=== PATIENT | female | born 1995 | race Hispanic/Latino ===

== ENCOUNTER 2017-05-25 21:17 | Emergency (ER) | payer BC, SELFPAY ==
[2017-05-25 22:11] LABS: Urine Blood TRACE (NEG); Urine Glucose NEGATIVE (NEG); Urine Protein NEGATIVE (NEG); Urine Specific Gravity >1.030 (1.005-1.030); Urine pH 5.5 (5.0-7.0)
[2017-05-25 22:42] LABS: Absolute Lymphocytes (CBC) 1.8 K/uL (0.7-4.9); Absolute Monocytes 0.4 K/uL (0.1-1.3); Absolute Neutrophil 6.1 K/uL (1.8-8.0); Basophils % 0.4 % (0-1.3); Eosinophils % 1.2 % (0-4.4); Hematocrit 40.9 % (36.0-45.0); MCH 30.2 pg (27.0-35.0); MCV 89.6 fL (80-100); MPV 9.3 fL (7.6-11.3); Monocytes % 5.1 % (3.3-12.3); RBC Red Blood Cell Count 4.57 M/uL (3.86-4.86)
[2017-05-25] MEDS ORDERED: ONDANSETRON 4 MG/2 ML VIAL ONE (22:57)
[2017-05-25] MEDS ORDERED: NA CHLORIDE 0.9% 1,000 ML ONE (22:57)
[2017-05-25 22:59] LABS: Bicarbonate 25 mEq/L (21-31); Glucose Level 89 mg/dL (65-120); Lipase 14 U/L (22-51); Potassium 3.6 mEq/L (3.6-5.0); Sodium Level 136 mEq/L (135-145)
[2017-05-25 23:00] LABS: Glomerular Filtration Rate > 60 mL/min (>60)
[2017-05-25 23:06] LABS: ALT/SGPT 16 IU/L (10-60); AST/SGOT 16 IU/L (10-42); Albumin 4.1 g/dL (3.2-5.5); Alkaline Phosphatase 97 IU/L (42-121); Amylase Level 66 U/L (28-100); BUN Blood Urea Nitrogen 11 mg/dL (6-20); Bilirubin Direct 0.1 mg/dL (0-0.2); Bilirubin Total 0.9 mg/dL (0.3-1.2); Glomerular Filtration Rate > 90 mL/min (=/>90); Protein, Total 7.3 g/dL (6.0-8.3)
[2017-05-25 23:53] LABS: Urine Bacteria 20-50 /HPF (<20); Urine RBC <5 /HPF (NONE SEEN)
[2017-05-25 23:54] LABS: Urine Culture Reflex Order NOT NEEDED; Urine Mucus 4+ /HPF (NONE SEEN)
--- NOTE | 2017-05-25 23:58 | ER ---
Nurse's Notes [facility] Name: Yamilet Ho Age: 22 yrs Sex: Female : 1995 Arrival Date: 05/25/2017 Time: 21:18 Bed 25 Private MD: Diagnosis: Vomiting;Diarrhea, unspecified;Fever, unspecified Presentation: 05/25 21:20 Presenting complaint: Patient states: I have had diarrhea and vomiting all day and a tl1 fever. I started having abdominal pain last night that feels like a cramping pain. Transition of care: patient was not received from another setting of care. Onset of symptoms was May 25, 2017. Care prior to arrival: None. 21:20 Acuity: JUAN 3 tl1 21:20 Method Of Arrival: Ambulatory tl1 Triage Assessment: 22:47 General: Appears in no apparent distress. comfortable, well groomed, well developed, kr2 well nourished. GI: Reports lower abdominal pain, upper abdominal pain. 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 - Social history:: Smoking status: Patient/guardian denies using tobacco, never smoked. - Family history:: not pertinent. Screenin:47 Abuse screen: Denies threats or abuse. Denies injuries from another. Nutritional kr2 screening: No deficits noted. Tuberculosis screening: No symptoms or risk factors identified. Fall Risk None identified. Assessment: 22:30 General: Appears in no apparent distress. comfortable, well groomed, well developed, kr2 well nourished, Behavior is calm, cooperative, appropriate for age. Pain: Complains of pain in chest and abdomen Pain does not radiate. Pain currently is 8 out of 10 on a pain scale. Quality of pain is described as crampy, pressure, sharp, squeezing, Is continuous. Neuro: Level of Consciousness is awake, alert, obeys commands, Oriented to person, place, time, situation, Appropriate for age. Cardiovascular: Capillary refill < 3 seconds in bilateral fingers Patient's skin is warm and dry. Respiratory: Airway is patent Respiratory effort is even, unlabored, Respiratory pattern is regular, symmetrical. GI: Abdomen is flat, non-distended, Bowel sounds present X 4 quads. hyperactive in right lower quadrant and left lower quadrant. : Urine is clear. EENT: Oral mucosa is moist. Derm: Skin is intact, is healthy with good turgor, Skin is pink, warm \T\ dry. Musculoskeletal: Circulation, motion, and sensation intact. Range of motion: intact in all extremities. 23:30 Reassessment: Patient appears in no apparent distress at this time. Patient and/or kr2 family updated on plan of care and expected duration. Pain level reassessed. Patient is alert, oriented x 3, equal unlabored respirations, skin warm/dry/pink. 05/26 00:38 Reassessment: Patient appears in no apparent distress at this time. Patient and/or kr2 family updated on plan of care and expected duration. Pain level reassessed. Patient is alert, oriented x 3, equal unlabored respirations, skin warm/dry/pink. 00:52 Reassessment: Patient appears in no apparent distress at this time. Patient and/or kr2 family updated on plan of care and expected duration. Pain level reassessed. Patient is alert, oriented x 3, equal unlabored respirations, skin warm/dry/pink. Patient has Cipro infusing at this time, to be discharged upon completion. Pain has decreased since receiving Morphine as ordered. 01:15 Reassessment: Patient appears in no apparent distress at this time. Patient is alert, lp1 oriented x 3, equal unlabored respirations, skin warm/dry/pink. Aware of pending discharge on completion of IV antibiotic Patient states feeling better. Vital Signs: 05/25 21:24 BP 112 / 83; Pulse 77; Resp 16; Temp 98.4; Pulse Ox 99% on R/A; Weight 74.84 kg; Height tl1 5 ft. 3 in. (160.02 cm); Pain 8/10; 22:48 BP 105 / 83; Pulse 89; Resp 16; Pulse Ox 99% on R/A; kr2 05/26 00:38 BP 136 / 84; Pulse 106; Resp 16; Pulse Ox 99% on R/A; kr2 01:27 BP 113 / 75; Pulse 99; Resp 16; Pulse Ox 99% on R/A; Pain 3/10; lp1 05/25 21:24 Body Mass Index 29.23 (74.84 kg, 160.02 cm) tl1 ED Course: 05/25 21:18 Patient arrived in ED. es 21:22 Triage completed. tl1 21:24 Arm band placed on right wrist. tl1 22:07 Evert Estes MD is Attending Physician. [facility] 22:23 Lana Hua, RN is Primary Nurse. kr2 22:30 Inserted saline lock: 20 gauge in left antecubital area, using aseptic technique. Blood kr2 collected. 22:47 Patient has correct armband on for positive identification. Bed in low position. Call kr2 light in reach. Side rails up X 1. Adult w/ patient. Pulse ox on. NIBP on. Door closed. Warm blanket given. Head of bed elevated. 05/26 01:00 Report received from Lana Hua RN. lp1 01:20 No provider procedures requiring assistance completed. lp1 01:27 IV discontinued, No redness/swelling at site. Pressure dressing applied. lp1 Administered Medications: 05/25 22:44 Drug: NS 0.9% 1000 ml Route: IV; Rate: 1 bolus; Site: left antecubital; kr2 05/26 00:39 Follow up: Response: No adverse reaction; IV Status: Completed infusion kr2 05/25 22:44 Drug: Zofran 4 mg Route: IVP; Site: left antecubital; kr2 23:00 Follow up: Response: No adverse reaction; Nausea is decreased kr2 05/26 00:22 Drug: Cipro 400 mg Volume: 200 ml; Route: IVPB; Infused Over: 60 mins; Site: left kr2 antecubital; 01:30 Follow up: IV Status: Completed infusion lp1 00:25 Drug: morphine 4 mg Route: IVP; Site: left antecubital; kr2 00:54 Follow up: Response: No adverse reaction; Pain is decreased kr2 00:25 Drug: Zofran 4 mg Route: IVP; Site: left antecubital; kr2 00:54 Follow up: Response: No adverse reaction; Nausea is decreased kr2 Outcome: 05/25 23:57 Discharge ordered by . lamberto 05/26 01:31 Discharged to home ambulatory, with family. lp1 Condition: good Discharge instructions given to patient, Instructed on discharge instructions, follow up and referral plans. medication usage, Demonstrated understanding of instructions, follow-up care, medications, Prescriptions given X 3. 01:33 Patient left the ED. lp1 Signatures: Evert Estes MD MD cha Salyer, Edna es Pena, Laura RN RN lp1 Kacey Avery RN RN tl1 Lana Hua RN RN kr2 Corrections: (The following items were deleted from the chart) 00:54 00:53 Response: No adverse reaction kr2 kr2
--- NOTE | 2017-05-25 23:58 | EDPHYS ---
Physician Documentation [facility] Name: Yamilet Ho Age: 22 yrs Sex: Female : 1995 Arrival Date: 05/25/2017 Time: 21:18 Bed 25 Private MD: ED Physician Evert Estes HPI: 05/25 23:54 This 22 yrs old Female presents to ER via Ambulatory with complaints of lamberto Vomiting/Diarrhea. 23:54 The patient presents to the emergency department with nausea, vomiting, diarrhea, lamberto abdominal pain, of the right upper quadrant, left upper quadrant, right lower quadrant and left lower quadrant. Onset: The symptoms/episode began/occurred 1 day(s) ago. Possible causes: unknown. The symptoms are aggravated by nothing. The symptoms are alleviated by nothing. Associated signs and symptoms: Pertinent positives: abdominal pain, diarrhea, fever, nausea, vomiting. Severity of symptoms: At their worst the symptoms were mild moderate in the emergency department the symptoms are unchanged. The patient has not experienced similar symptoms in the past. 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 - Social history:: Smoking status: Patient/guardian denies using tobacco, never smoked. - Family history:: not pertinent. ROS: 23:54 Constitutional: Negative for fever, chills, and weight loss, Eyes: Negative for injury, lamberto pain, redness, and discharge, ENT: Negative for injury, pain, and discharge, Neck: Negative for injury, pain, and swelling, Cardiovascular: Negative for chest pain, palpitations, and edema, Respiratory: Negative for shortness of breath, cough, wheezing, and pleuritic chest pain, Back: Negative for injury and pain, : Negative for injury, bleeding, discharge, and swelling, MS/Extremity: Negative for injury and deformity, Skin: Negative for injury, rash, and discoloration, Neuro: Negative for headache, weakness, numbness, tingling, and seizure, Psych: Negative for depression, anxiety, suicide ideation, homicidal ideation, and hallucinations, Allergy/Immunology: Negative for hives, rash, and allergies, Endocrine: Negative for neck swelling, polydipsia, polyuria, polyphagia, and marked weight changes, Hematologic/Lymphatic: Negative for swollen nodes, abnormal bleeding, and unusual bruising. 23:54 Abdomen/GI: Positive for abdominal pain, nausea, vomiting, diarrhea. Exam: 23:54 Constitutional: This is a well developed, well nourished patient who is awake, alert, lamberto and in no acute distress. Head/Face: Normocephalic, atraumatic. Eyes: Pupils equal round and reactive to light, extra-ocular motions intact. Lids and lashes normal. Conjunctiva and sclera are non-icteric and not injected. Cornea within normal limits. Periorbital areas with no swelling, redness, or edema. ENT: Nares patent. No nasal discharge, no septal abnormalities noted. Tympanic membranes are normal and external auditory canals are clear. Oropharynx with no redness, swelling, or masses, exudates, or evidence of obstruction, uvula midline. Mucous membranes moist. Neck: Trachea midline, no thyromegaly or masses palpated, and no cervical lymphadenopathy. Supple, full range of motion without nuchal rigidity, or vertebral point tenderness. No Meningismus. Chest/axilla: Normal chest wall appearance and motion. Nontender with no deformity. No lesions are appreciated. Cardiovascular: Regular rate and rhythm with a normal S1 and S2. No gallops, murmurs, or rubs. Normal PMI, no JVD. No pulse deficits. Respiratory: Lungs have equal breath sounds bilaterally, clear to auscultation and percussion. No rales, rhonchi or wheezes noted. No increased work of breathing, no retractions or nasal flaring. Abdomen/GI: Soft, non-tender, with normal bowel sounds. No distension or tympany. No guarding or rebound. No evidence of tenderness throughout. Back: No spinal tenderness. No costovertebral tenderness. Full range of motion. Skin: Warm, dry with normal turgor. Normal color with no rashes, no lesions, and no evidence of cellulitis. MS/ Extremity: Pulses equal, no cyanosis. Neurovascular intact. Full, normal range of motion. Neuro: Awake and alert, GCS 15, oriented to person, place, time, and situation. Cranial nerves II-XII grossly intact. Motor strength 5/5 in all extremities. Sensory grossly intact. Cerebellar exam normal. Normal gait. Psych: Awake, alert, with orientation to person, place and time. Behavior, mood, and affect are within normal limits. Vital Signs: 21:24 BP 112 / 83; Pulse 77; Resp 16; Temp 98.4; Pulse Ox 99% on R/A; Weight 74.84 kg; Height tl1 5 ft. 3 in. (160.02 cm); Pain 8/10; 22:48 BP 105 / 83; Pulse 89; Resp 16; Pulse Ox 99% on R/A; kr2 05/26 00:38 BP 136 / 84; Pulse 106; Resp 16; Pulse Ox 99% on R/A; kr2 01:27 BP 113 / 75; Pulse 99; Resp 16; Pulse Ox 99% on R/A; Pain 3/10; lp1 05/25 21:24 Body Mass Index 29.23 (74.84 kg, 160.02 cm) tl1 MDM: 05/25 22:07 Patient medically screened. [facility] 23:56 Data reviewed: vital signs, nurses notes, lab test result(s). [facility] 05/25 21:46 Order name: Urine Dipstick--Ancillary (enter results) [facility] 05/25 21:46 Order name: Urine --Ancillary (enter results) [facility] 05/25 22:08 Order name: Amylase, Serum [facility] 05/25 22:08 Order name: Basic Metabolic Panel [facility] 05/25 22:08 Order name: CBC with Diff [facility] 05/25 22:08 Order name: Creatinine for Radiology [facility] 05/25 22:08 Order name: Hepatic Function [facility] 05/25 22:08 Order name: Lipase [facility] 05/25 22:08 Order name: Urine Microscopic Only [facility] 05/25 22:08 Order name: Urine Culture [facility] 05/25 22:12 Order name: Urine --Ancillary; Complete Time: 23:52 EDMS 05/25 22:12 Order name: Urine Dipstick-Ancillary; Complete Time: 23:52 EDMS 05/25 22:51 Order name: CBC with Automated Diff; Complete Time: 23:52 EDKY 05/25 23:00 Order name: Basic Metabolic Panel; Complete Time: 23:52 EDMS 05/25 21:46 Order name: Urine Dipstick-Ancillary (obtain specimen); Complete Time: 21:46 em1 05/25 21:46 Order name: Urine Test (obtain specimen); Complete Time: 21:46 1 05/25 22:08 Order name: IV Saline Lock; Complete Time: 22:36 [facility] 05/25 22:08 Order name: Labs collected and sent; Complete Time: 22:36 [facility] 05/25 23:00 Order name: Lipase; Complete Time: 23:52 EDMS 05/25 23:01 Order name: Creatinine (Radiology Only); Complete Time: 23:52 EDMS 05/25 23:06 Order name: Liver (Hepatic) Function; Complete Time: 23:52 EDMS 05/25 23:06 Order name: Amylase Level; Complete Time: 23:52 EDMS 05/25 23:54 Order name: Urine Microscopic Only; Complete Time: 23:54 EDMS Administered Medications: 22:44 Drug: NS 0.9% 1000 ml Route: IV; Rate: 1 bolus; Site: left antecubital; kr2 05/26 00:39 Follow up: Response: No adverse reaction; IV Status: Completed infusion 2 05/25 22:44 Drug: Zofran 4 mg Route: IVP; Site: left antecubital; kr2 23:00 Follow up: Response: No adverse reaction; Nausea is decreased 2 05/26 00:22 Drug: Cipro 400 mg Volume: 200 ml; Route: IVPB; Infused Over: 60 mins; Site: left kr antecubital; 01:30 Follow up: IV Status: Completed infusion lp1 00:25 Drug: morphine 4 mg Route: IVP; Site: left antecubital; kr2 00:54 Follow up: Response: No adverse reaction; Pain is decreased kr2 00:25 Drug: Zofran 4 mg Route: IVP; Site: left antecubital; kr2 00:54 Follow up: Response: No adverse reaction; Nausea is decreased kr2 Disposition: 05/25/17 23:57 Discharged to Home. Impression: Vomiting, Diarrhea, unspecified, Fever, unspecified. - Condition is Stable. - Discharge Instructions: Food Choices to Help Relieve Diarrhea, Adult, Diarrhea, Nausea and Vomiting, Nausea and Vomiting, [id number], Diarrhea, [id number]. - Prescriptions for Bentyl 20 mg Oral Tablet - take 1 tablet by ORAL route every 6 hours As needed; 20 tablet. Zofran 4 mg Oral Tablet - take 1 tablet by ORAL route every 12 hours As needed; 20 tablet. Cipro 500 mg Oral Tablet - take 1 tablet by ORAL route every 12 hours for 5 days; 10 tablet. - Medication Reconciliation Form, Thank You Letter, Antibiotic Education, Prescription Opioid Use, Work release form form. - Follow up: Private Physician; When: 2 - 3 days; Reason: Recheck today's complaints, Continuance of care, Re-evaluation by your physician. - Problem is new. - Symptoms have improved. Signatures: Dispatcher [employer] EDMS Evert Estes MD MD cha Martinez, Eric em1 Arline Lama, RN RN lp1 Kacey Avery, RN RN tl1 Lana Hua RN RN kr2
[2017-05-26] MEDS ORDERED: CIPROFLOXACIN 400mg IV 400 MG/200 ML BAG IV ONE (00:31)
[2017-05-26] MEDS ORDERED: ONDANSETRON 4 MG/2 ML VIAL ONE (00:36)
[2017-05-26] MEDS ORDERED: MORPHINE 4 MG/ML SYR ONE (00:36)
[2017-05-26 01:38] VITALS: TEMP 98.4; O2SAT 99
[2017-05-26 01:41] VITALS: BP 113/75
== END 2017-05-26 01:33 | disposition home or self-care (01) ==
LOC: ER 21:17
DX: R19.7 Diarrhea, unspecified (principal); R50.9 Fever, unspecified; Z88.6 Allergy status to analgesic agent
CPT/HCPCS: 36415; 80048; 80076; 81003; 81015; 81025; 82150; 83690; 85025; 87086; 87088; 96361; 96365; 96375; 99284; J0744; J2405; J7030

== ENCOUNTER 2017-09-27 21:19 | Emergency (ER) | payer SELFPAY ==
[2017-09-27 22:52] LABS: Urine Blood NEGATIVE (NEG); Urine Glucose NEGATIVE (NEG); Urine Protein NEGATIVE (NEG); Urine Specific Gravity 1.015 (1.005-1.030); Urine pH 8.5 (5.0-7.0)
[2017-09-27 22:59] LABS: Urine Amorphous Sediment 4+ /HPF (NONE SEEN); Urine Bacteria <20 /HPF (<20); Urine Culture Reflex Order NOT NEEDED; Urine RBC NONE SEEN /HPF (NONE SEEN)
[2017-09-27 23:16] LABS: Absolute Monocytes 0.7 K/uL (0.1-1.3); Absolute Neutrophil 6.1 K/uL (1.8-8.0); Basophils % 0.3 % (0-1.3); Eosinophils % 0.7 % (0-4.4); MCH 30.9 pg (27.0-35.0); MCV 91.3 fL (80-100); MPV 9.6 fL (7.6-11.3); Monocytes % 6.9 % (3.3-12.3); RBC Red Blood Cell Count 4.71 M/uL (3.86-4.86)
[2017-09-27] MEDS ORDERED: FENTANYL CITR 100 MCG/2 ML ONE (23:28)
[2017-09-27 23:35] LABS: ALT/SGPT 32 U/L (12-78); AST/SGOT 26 U/L (15-37); Albumin 4.1 g/dL (3.4-5.0); Alkaline Phosphatase 99 U/L (45-117); BUN Blood Urea Nitrogen 14 mg/dL (7-18); Bicarbonate 29 mmol/L (21-32); Bilirubin Direct < 0.1 mg/dL (0-0.2); Bilirubin Total 0.3 mg/dL (0.2-1.0); Glucose Level 89 mg/dL (74-106); Lipase 101 U/L (73-393); Potassium 3.6 mmol/L (3.5-5.1); Protein, Total 8.2 g/dL (6.4-8.2); Sodium Level 140 mmol/L (136-145)
[2017-09-28] MEDS ORDERED: KETOROLAC 30 MG/ML INJ ONE (01:25)
--- NOTE | 2017-09-28 03:36 | ER ---
Nurse's Notes [facility] Name: Yamilet Ho Age: 22 yrs Sex: Female : 1995 Arrival Date: 09/27/2017 Time: 21:20 Bed 17 Private MD: Out, [facility] Diagnosis: Lower abdominal pain, unspecified Presentation: 09/27 21:31 Presenting complaint: Patient states: left lower abd pain X1 day. pt denies N/V/D. ak1 Transition of care: patient was not received from another setting of care. Onset of symptoms was September 26, 2017. Risk Assessment: Do you want to hurt yourself or someone else? Patient reports no desire to harm self or others. Initial Sepsis Screen: Does the patient meet any 2 criteria? No. Patient's initial sepsis screen is negative. Does the patient have a suspected source of infection? No. Patient's initial sepsis screen is negative. Care prior to arrival: None. 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 - Social history:: Smoking status: Patient/guardian denies using tobacco. - Ebola Screening: : No symptoms or risks identified at this time. Screenin:40 Abuse screen: Denies threats or abuse. Nutritional screening: No deficits noted. jd3 Tuberculosis screening: No symptoms or risk factors identified. Fall Risk Ambulatory Aid- None/Bed Rest/Nurse Assist (0 pts). Gait- Normal/Bed Rest/Wheelchair (0 pts) Mental Status- Oriented to own ability (0 pts). Total Tripathi Fall Scale indicates No Risk (0-24 pts). Assessment: 21:37 General: Appears in no apparent distress. uncomfortable, Behavior is calm, cooperative, jd3 appropriate for age. Pain: Complains of pain in left upper quadrant Quality of pain is described as sharp, tender, Is continuous, Also complains of nausea. Neuro: Level of Consciousness is awake, alert, obeys commands, Oriented to person, place, time, situation. Cardiovascular: Capillary refill < 3 seconds Patient's skin is warm and dry. Respiratory: Airway is patent Respiratory effort is even, unlabored, Respiratory pattern is regular, symmetrical. GI: Abdomen is round Bowel sounds present X 4 quads. Abd is soft X 4 quads Abdomen is tender to palpation in left upper quadrant. : No signs and/or symptoms were reported regarding the genitourinary system. EENT: No signs and/or symptoms were reported regarding the EENT system. Derm: Skin is intact, Skin is dry, Skin is normal, Skin temperature is warm. Musculoskeletal: Circulation, motion, and sensation intact. Range of motion: intact in all extremities. 23:26 Reassessment: Patient appears in no apparent distress at this time. Patient and/or jd3 family updated on plan of care and expected duration. Pain level reassessed. Patient is alert, oriented x 3, equal unlabored respirations, skin warm/dry/pink. 09/28 00:00 Reassessment: Patient appears in no apparent distress at this time. Patient and/or jd3 family updated on plan of care and expected duration. Pain level reassessed. Patient is alert, oriented x 3, equal unlabored respirations, skin warm/dry/pink. 00:58 Reassessment: Patient appears in no apparent distress at this time. Patient and/or jd3 family updated on plan of care and expected duration. Pain level reassessed. Patient is alert, oriented x 3, equal unlabored respirations, skin warm/dry/pink. 01:57 Reassessment: Patient appears in no apparent distress at this time. Patient and/or jd3 family updated on plan of care and expected duration. Pain level reassessed. Patient is alert, oriented x 3, equal unlabored respirations, skin warm/dry/pink. 02:55 Reassessment: Patient appears in no apparent distress at this time. Patient and/or jd3 family updated on plan of care and expected duration. Pain level reassessed. Patient is alert, oriented x 3, equal unlabored respirations, skin warm/dry/pink. 03:52 Reassessment: Patient appears in no apparent distress at this time. Patient and/or jd3 family updated on plan of care and expected duration. Pain level reassessed. Patient is alert, oriented x 3, equal unlabored respirations, skin warm/dry/pink. pt reported understanding of discharge instructions, even and steady gait upon discharge. Vital Signs: 09/27 21:32 BP 140 / 99; Pulse 89; Resp 18; Temp 98; Pulse Ox 99% on R/A; Weight 95.25 kg (R); ak1 Height 5 ft. 3 in. (160.02 cm) (R); Pain 8/10; 22:08 BP 112 / 78; Pulse 88; Resp 17 S; Pulse Ox 98% on R/A; jd3 23:26 BP 106 / 60; Pulse 78; Resp 16 S; Pulse Ox 98% on R/A; jd3 09/28 00:00 BP 99 / 66; Pulse 80; Resp 15 S; Pulse Ox 98% on R/A; jd3 00:58 BP 113 / 77; Pulse 79; Resp 16 S; Pulse Ox 98% on R/A; jd3 01:57 BP 111 / 71; Pulse 66; Resp 15 S; Pulse Ox 100% on R/A; jd3 02:55 BP 118 / 62; Pulse 71; Resp 15 S; Pulse Ox 98% on R/A; jd3 03:53 BP 108 / 64; Pulse 62; Resp 16 S; Pulse Ox 98% on R/A; jd3 09/27 21:32 Body Mass Index 37.20 (95.25 kg, 160.02 cm) ak1 ED Course: 09/27 21:20 Patient arrived in ED. es 21:20 Out, [facility] is Private Physician. es 21:31 Triage completed. ak1 21:32 Arm band placed on Patient placed in an exam room, on a stretcher, Patient notified of ak1 wait time. 21:39 Ky Aaron MD is Attending Physician. gs 21:39 Jermaine Sheriff, RAYNA is Primary Nurse. jd3 21:41 Patient has correct armband on for positive identification. Bed in low position. Call j light in reach. Side rails up X 1. 23:00 Initial lab(s) drawn, by me, sent to lab. Inserted saline lock: 20 gauge in left bb antecubital area, using aseptic technique. Blood collected. 09/28 00:[address] via stretcher. kw1 01:07 CT completed. Patient tolerated procedure well. Patient moved back from CT. kw1 01:13 CT Abd/Pelvis - W/Contrast In Process Unspecified. EDMS 03:51 No provider procedures requiring assistance completed. IV discontinued, intact, jd3 bleeding controlled. Administered Medications: 09/27 23:32 Drug: fentaNYL (PF) 50 mcg Route: IVP; Site: left antecubital; jd3 09/28 00:25 Follow up: Response: No adverse reaction jd3 01:26 Drug: TORadol 15 mg Route: IVP; Site: left antecubital; jd3 03:54 Follow up: Response: No adverse reaction jd3 Outcome: 03:35 Discharge ordered by MD. 03:52 Discharged to home ambulatory, with family. jd3 03:52 Condition: stable 03:52 Discharge instructions given to patient, Instructed on discharge instructions, follow up and referral plans. Demonstrated understanding of instructions, follow-up care. 03:54 Patient left the ED. jd3 Signatures: Dispatcher [employer] EDVenus Wright Brenda, RN RN Maisha Loyd RN RN ak1 Ky Aaron MD MD gs Davies, Jonathon, RN RN jElsa Brown kw1 Corrections: (The following items were deleted from the chart) 01:58 01:57 BP 155 / 60; Pulse 72bpm; Resp 17bpm; Spontaneous; Pulse Ox 98% RA; jd3 jd3
--- NOTE | 2017-09-28 03:36 | EDPHYS ---
Physician Documentation [facility] Name: Yamilet Ho Age: 22 yrs Sex: Female : 1995 Arrival Date: 09/27/2017 Time: 21:20 Bed 17 Private MD: Out, [facility] ED Physician Ky Aaron HPI: 09/27 23:32 This 22 yrs old Female presents to ER via Ambulatory with complaints of gs Abdominal Pain. 23:32 The patient presents with abdominal pain in the left lower quadrant. Onset: The gs symptoms/episode began/occurred yesterday. The symptoms do not radiate. Associated signs and symptoms: Pertinent negatives: nausea, vomiting, and diarrhea, dysuria, fever. The symptoms are described as crampy, sharp. Modifying factors: The symptoms are alleviated by nothing, the symptoms are aggravated by nothing. Severity of pain: At its worst the pain was moderate in the emergency department the pain is unchanged. The patient has experienced similar episodes in the past, a few times. 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 - Social history:: Smoking status: Patient/guardian denies using tobacco. - Ebola Screening: : No symptoms or risks identified at this time. ROS: 23:32 All other systems are negative. gs Exam: 23:32 Head/Face: Normocephalic, atraumatic. Eyes: Pupils equal round and reactive to light, gs extra-ocular motions intact. Lids and lashes normal. Conjunctiva and sclera are non-icteric and not injected. Cornea within normal limits. Periorbital areas with no swelling, redness, or edema. ENT: Nares patent. No nasal discharge, no septal abnormalities noted. Tympanic membranes are normal and external auditory canals are clear. Oropharynx with no redness, swelling, or masses, exudates, or evidence of obstruction, uvula midline. Mucous membranes moist. Neck: Trachea midline, no thyromegaly or masses palpated, and no cervical lymphadenopathy. Supple, full range of motion without nuchal rigidity, or vertebral point tenderness. No Meningismus. Chest/axilla: Normal chest wall appearance and motion. Nontender with no deformity. No lesions are appreciated. Cardiovascular: Regular rate and rhythm with a normal S1 and S2. No gallops, murmurs, or rubs. Normal PMI, no JVD. No pulse deficits. Respiratory: Lungs have equal breath sounds bilaterally, clear to auscultation and percussion. No rales, rhonchi or wheezes noted. No increased work of breathing, no retractions or nasal flaring. Back: No spinal tenderness. No costovertebral tenderness. Full range of motion. Skin: Warm, dry with normal turgor. Normal color with no rashes, no lesions, and no evidence of cellulitis. MS/ Extremity: Pulses equal, no cyanosis. Neurovascular intact. Full, normal range of motion. Neuro: Awake and alert, GCS 15, oriented to person, place, time, and situation. Cranial nerves II-XII grossly intact. Motor strength 5/5 in all extremities. Sensory grossly intact. Cerebellar exam normal. Normal gait. 23:32 Constitutional: The patient appears alert, awake. 23:32 Abdomen/GI: Palpation: moderate abdominal tenderness, in the left lower quadrant, rebound tenderness, is not appreciated. Vital Signs: 21:32 BP 140 / 99; Pulse 89; Resp 18; Temp 98; Pulse Ox 99% on R/A; Weight 95.25 kg (R); ak1 Height 5 ft. 3 in. (160.02 cm) (R); Pain 8/10; 22:08 BP 112 / 78; Pulse 88; Resp 17 S; Pulse Ox 98% on R/A; jd3 23:26 BP 106 / 60; Pulse 78; Resp 16 S; Pulse Ox 98% on R/A; jd3 0724 00:00 BP 99 / 66; Pulse 80; Resp 15 S; Pulse Ox 98% on R/A; jd3 00:58 BP 113 / 77; Pulse 79; Resp 16 S; Pulse Ox 98% on R/A; jd3 01:57 BP 111 / 71; Pulse 66; Resp 15 S; Pulse Ox 100% on R/A; jd3 02:55 BP 118 / 62; Pulse 71; Resp 15 S; Pulse Ox 98% on R/A; jd3 03:53 BP 108 / 64; Pulse 62; Resp 16 S; Pulse Ox 98% on R/A; jd3 09/27 21:32 Body Mass Index 37.20 (95.25 kg, 160.02 cm) ak1 MDM: 09/27 22:19 Patient medically screened. 23:32 Differential diagnosis: diverticulitis, non-specific abd pain, urinary tract infection. Data reviewed: vital signs, nurses notes. Response to treatment: the patient's symptoms have markedly improved after treatment, and as a result, I will discharge patient. 09/27 22:22 Order name: Basic Metabolic Panel; Complete Time: 01:25 09/27 22:22 Order name: CBC with Diff; Complete Time: 23:28 09/27 22:22 Order name: Hepatic Function; Complete Time: 01:25 09/27 22:22 Order name: Lipase; Complete Time: 01:25 09/27 22:22 Order name: Urine Microscopic Only; Complete Time: 23:28 09/27 22:49 Order name: Urine Dipstick--Ancillary (enter results); Complete Time: 23:28 wy 09/27 22:22 Order name: Urine Test (obtain specimen); Complete Time: 22:48 09/27 22:22 Order name: IV Saline Lock; Complete Time: 23:07 09/27 22:22 Order name: Labs collected and sent; Complete Time: 23:07 09/27 22:22 Order name: Urine Dipstick-Ancillary (obtain specimen); Complete Time: 22:48 09/27 22:22 Order name: CT Abd/Pelvis - W/Contrast 09/27 22:49 Order name: Urine --Ancillary (enter results); Complete Time: 23:28 mt Administered Medications: 23:32 Drug: fentaNYL (PF) 50 mcg Route: IVP; Site: left antecubital; jd3 09/28 00:25 Follow up: Response: No adverse reaction jd3 01:26 Drug: TORadol 15 mg Route: IVP; Site: left antecubital; jd3 03:54 Follow up: Response: No adverse reaction jd3 Disposition: 09/28/17 03:35 Discharged to Home. Impression: Lower abdominal pain, unspecified. - Condition is Stable. - Discharge Instructions: Abdominal Pain, Adult. - Medication Reconciliation Form, Thank You Letter, Antibiotic Education, Prescription Opioid Use form. - Follow up: Private Physician; When: 2 - 3 days; Reason: Re-evaluation by your physician. Signatures: Dispatcher [employer] Maisha Jaime RN RN ak1 Ky Aaron MD MD gs Davies, Jonathon RN RN jd3 Corrections: (The following items were deleted from the chart) 03:54 03:35 09/28/2017 03:35 Discharged to Home. Impression: Lower abdominal pain, jd3 unspecified. Condition is Stable. Forms are Medication Reconciliation Form, Thank You Letter, Antibiotic Education, Prescription Opioid Use. Follow up: Private Physician; When: 2 - 3 days; Reason: Re-evaluation by your physician. gs
[2017-09-28 04:00] VITALS: TEMP 98
[2017-09-28 04:07] VITALS: O2SAT 98
[2017-09-28 04:08] VITALS: BP 108/64
--- NOTE | 2017-09-28 08:07 | RAD REPORT ---
EXAM DESCRIPTION: CT - Abdomen Pelvis W Contrast - 09/28/2017 7:11 am CLINICAL HISTORY: Abdominal pain. Left lower quadrant pain for 1 day COMPARISON: None. TECHNIQUE: Computed axial tomography of the abdomen and pelvis was obtained. 100 cc Isovue-300 is ad ministered intravenously. Oral contrast was given.A preliminary report was generated by [employer] and reviewed prior to this dictation All CT scans are performed using dose optimization technique as appropriate and may include automated exposure control or mA/KV adjustment according to patient size. FINDINGS: The liver, spleen, pancreas, adrenals and kidneys appear unremarkable. The appendix is normal caliber. There is no evidence of diverticulitis A 17 millimeter regularly shaped left ovarian follicle is present. Significant free fluid is not note d IMPRESSION: A 17 millimeter regularly shaped left ovarian follicle is present. It may have recently ruptured. Significant free fluid is not noted
== END 2017-09-28 03:54 | disposition home or self-care (01) ==
LOC: ER 21:19
DX: R10.32 Left lower quadrant pain (principal); Z88.6 Allergy status to analgesic agent
CPT/HCPCS: 36415; 74177; 80048; 80076; 81003; 81015; 81025; 83690; 85025; 96374; 96375; 99284; J3010; Q9967

== ENCOUNTER 2018-08-22 18:39 | Emergency (ER) | payer BC, SELFPAY ==
[2018-08-22 20:47] LABS: Urine Blood TRACE (NEG); Urine Glucose NEGATIVE (NEG); Urine Protein NEGATIVE (NEG); Urine Specific Gravity 1.025 (1.005-1.030); Urine pH 5.5 (5.0-7.0)
--- NOTE | 2018-08-22 20:48 | RAD REPORT ---
EXAM DESCRIPTION: CT - Head Brain Wo Cont - 08/22/2018 8:42 pm CLINICAL HISTORY: HEADACHE Headache, drowsiness COMPARISON: Head Brain Wo Cont dated 08/11/2016 TECHNIQUE: All CT scans are performed using dose optimization technique as appropriate and may inclu de automated exposure control or mA/KV adjustment according to patient size. FINDINGS: No intracranial hemorrhage, hydrocephalus or extra-axial fluid collection.No areas of brai n edema or evidence of midline shift. The paranasal sinuses and mastoids are clear. The calvarium is intact. IMPRESSION: No acute intracranial abnormality.
[2018-08-22] MEDS ORDERED: METOCLOPRAMIDE 10 MG/2mL INJ ONE (20:55)
[2018-08-22 21:00] LABS: Absolute Lymphocytes (CBC) 3.2 K/uL (0.7-4.9); Basophils % 0.5 % (0-1.3); Eosinophils % 0.7 % (0-4.4); Hematocrit 41.3 % (36.0-45.0); Lymphocytes % 31.5 % (15.3-44.8); MPV 9.1 fL (7.6-11.3); Monocytes % 3.9 % (3.3-12.3); RBC Red Blood Cell Count 4.54 M/uL (3.86-4.86)
[2018-08-22 21:12] LABS: Potassium 3.8 mmol/L (3.5-5.1)
--- NOTE | 2018-08-22 21:28 | ER ---
Nurse's Notes [facility] Name: Yamilet Ho Age: 23 yrs Sex: Female : 1995 Arrival Date: 08/22/2018 Time: 19:13 Bed 16 Private MD: Diagnosis: acute headache Presentation: 08/22 19:18 Presenting complaint: Patient states: cyst in nasal cavity causing 3 day migraine, pt ak1 would like cyst removed. pt with follow up with ENT September 16. Transition of care: patient was not received from another setting of care. Onset of symptoms is unknown. Risk Assessment: Do you want to hurt yourself or someone else? Patient reports no desire to harm self or others. Initial Sepsis Screen: Does the patient meet any 2 criteria? No. Patient's initial sepsis screen is negative. Does the patient have a suspected source of infection? No. Patient's initial sepsis screen is negative. Care prior to arrival: None. 19:18 Acuity: JUAN 3 ak1 19:18 Method Of Arrival: Ambulatory ak1 Triage Assessment: 19:19 Headache History: Other pt with hx migraines. General: Appears in no apparent distress. ak1 Behavior is calm, cooperative, appropriate for age. Pain: Pain currently is 10 out of 10 on a pain scale. Pain began 2-3 days ago. Also complains of inability to perform activities of daily living, sleeplessness. EENT: Reports cyst in nasal cavity. Neuro: Level of Consciousness is awake, alert, obeys commands, Oriented to person, place, time, situation, Pharmacy Tech Customer Service are equal bilaterally Moves all extremities. Gait is steady, Speech is normal, Facial symmetry appears normal, Pupils are PERRLA. Cardiovascular: No deficits noted. Respiratory: No deficits noted. GI: No signs and/or symptoms were reported involving the gastrointestinal system. : No signs and/or symptoms were reported regarding the genitourinary system. Derm: No signs and/or symptoms reported regarding the dermatologic system. Musculoskeletal: No signs and/or symptoms reported regarding the musculoskeletal system. 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 - Social history:: Smoking status: Patient/guardian denies using tobacco. - Ebola Screening: : No symptoms or risks identified at this time. - Family history:: not pertinent. - Hospitalizations: : No recent hospitalization is reported. Screenin:21 Abuse screen: Denies threats or abuse. Denies injuries from another. Nutritional ak1 screening: No deficits noted. Tuberculosis screening: No symptoms or risk factors identified. Fall Risk None identified. Assessment: 20:55 General: Appears uncomfortable, Behavior is calm, cooperative, appropriate for age. ea Pain: Complains of pain in headache. Neuro: Level of Consciousness is awake, alert, obeys commands, Oriented to person, place, time, situation. Cardiovascular: Patient's skin is warm and dry. Respiratory: Airway is patent Respiratory effort is even, unlabored, Respiratory pattern is regular, symmetrical. EENT: No signs and/or symptoms were reported regarding the EENT system. Derm: Skin is pink, warm \T\ dry. 21:30 Reassessment: Patient and/or family updated on plan of care and expected duration. Pain ea level reassessed. Patient is alert, oriented x 3, equal unlabored respirations, skin warm/dry/pink. 22:08 Reassessment: Patient and/or family updated on plan of care and expected duration. Pain ea level reassessed. Patient is alert, oriented x 3, equal unlabored respirations, skin warm/dry/pink. Discharge instruction given to patient, verbalized the understanding of instruction. Pt left ED ambulatory, accompanied by significant other. Pt tolerating well Patient states symptoms have improved. Vital Signs: 19:17 BP 143 / 91; Pulse 73; Resp 16; Temp 98.1; Pulse Ox 100% on R/A; Weight 97.98 kg (R); ak1 Height 5 ft. 6 in. (167.64 cm) (R); Pain 10/10; 21:37 BP 108 / 60; Pulse 70; Resp 18; Pulse Ox 100% on R/A; ea 22:00 BP 110 / 70; Pulse 68; Resp 18; Temp 98; Pulse Ox 99% on R/A; ea 19:17 Body Mass Index 34.86 (97.98 kg, 167.64 cm) ak ED Course: 19:13 Patient arrived in ED. es 19:19 Triage completed. ak1 19:19 Arm band placed on Patient placed in waiting room, Patient notified of wait time. ak1 19:21 Patient has correct armband on for positive identification. ak1 19:41 Kenny Roca MD is Attending Physician. wa 20:32 Zuleyka Molina, RAYNA is Primary Nurse. ea 20:42 CT Head Brain wo Cont In Process Unspecified. EDMS 21:03 Inserted saline lock: 20 gauge in left antecubital area, using aseptic technique. Blood mt collected. 21:25 Attila Santo MD is Referral Physician. wa 21:26 Elba Vega MD is Referral Physician. wa 22:00 No provider procedures requiring assistance completed. IV discontinued, intact, ea bleeding controlled, No redness/swelling at site. Pressure dressing applied. Administered Medications: 20:41 Not Given (Other Intervention Used): Compazine 5 mg IVP once ea 21:00 Drug: TORadol 30 mg Route: IVP; Site: left antecubital; ea 22:02 Follow up: Response: No adverse reaction; Pain is decreased ea 21:03 Drug: Decadron - Dexamethasone 10 mg Route: IVP; Site: left antecubital; ea 22:02 Follow up: Response: No adverse reaction ea 21:06 Drug: NS 0.9% 1000 ml Route: IV; Rate: 1 bolus; Site: left antecubital; ea 22:00 Follow up: IV Status: Completed infusion; IV Intake: 1000ml ea 21:06 Drug: Reglan 5 mg Route: IVP; Site: left antecubital; ea 22:01 Follow up: Response: No adverse reaction ea 21:07 Drug: Benadryl 12.5 mg Route: IVP; Site: left antecubital; ea 22:02 Follow up: Response: No adverse reaction ea Intake: 22:00 IV: 1000ml; Total: 1000ml. ea Outcome: 21:27 Discharge ordered by . wa 22:10 Discharged to home ambulatory, with significant other. ea 22:10 Condition: stable 22:10 Discharge instructions given to patient, Instructed on discharge instructions, follow up and referral plans. medication usage, Demonstrated understanding of instructions, follow-up care, medications, Prescriptions given X 2. 22:12 Patient left the ED. ea Signatures: Dispatcher [employer] Venus Rivera Amber, RN RN akMichelle Nieves mt, Elena, RN RN Kenny Hahn MD MD wa
--- NOTE | 2018-08-22 21:28 | EDPHYS ---
Physician Documentation [facility] Name: Yamilet Ho Age: 23 yrs Sex: Female : 1995 Arrival Date: 08/22/2018 Time: 19:13 Bed 16 Private MD: ED Physician Kenny Roca HPI: 08/22 21:21 This 23 yrs old Female presents to ER via Ambulatory with complaints of wa Headache, Nose Bleed. 21:21 The patient complains of pain to the Right side face. The patient describes the wa headache as pounding. Onset: The symptoms/episode began/occurred 3 day(s) ago. Associated signs and symptoms: Pertinent positives: nausea, visual field changes, Pertinent negatives: fever, neck stiffness, paresthesias, Photophobia. Severity of symptoms: At its worst the pain was a " 8" out of "10", in the emergency department the pain is unchanged. Headache History: The patient has had previous headaches and this one is similar to previous episodes. The symptoms are alleviated by nothing. the symptoms are aggravated by nothing. The patient has experienced similar episodes in the past. The patient has been recently seen by a physician: given nasal sprays. states feesl making her symptoms worse. . 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 - Social history:: Smoking status: Patient/guardian denies using tobacco. - Ebola Screening: : No symptoms or risks identified at this time. - Family history:: not pertinent. - Hospitalizations: : No recent hospitalization is reported. ROS: 21:23 Constitutional: Negative for fever, chills, and weight loss, Eyes: Negative for injury, wa pain, redness, and discharge, ENT: Negative for injury, pain, and discharge, Neck: Negative for injury, pain, and swelling, Cardiovascular: Negative for chest pain, palpitations, and edema, Respiratory: Negative for shortness of breath, cough, wheezing, and pleuritic chest pain, Abdomen/GI: Negative for abdominal pain, nausea, vomiting, diarrhea, and constipation, Back: Negative for injury and pain, : Negative for injury, bleeding, discharge, and swelling, MS/Extremity: Negative for injury and deformity, Skin: Negative for injury, rash, and discoloration, Psych: Negative for depression, anxiety, suicide ideation, homicidal ideation, and hallucinations. 21:23 Neuro: Positive for dizziness, headache, Negative for syncope, weakness. 21:23 All other systems are negative. Exam: 21:24 Constitutional: This is a well developed, well nourished patient who is awake, alert, wa and in no acute distress. Head/Face: Normocephalic, atraumatic. Eyes: Pupils equal round and reactive to light, extra-ocular motions intact. Lids and lashes normal. Conjunctiva and sclera are non-icteric and not injected. Cornea within normal limits. Periorbital areas with no swelling, redness, or edema. ENT: Nares patent. No nasal discharge, no septal abnormalities noted. Tympanic membranes are normal and external auditory canals are clear. Oropharynx with no redness, swelling, or masses, exudates, or evidence of obstruction, uvula midline. Mucous membranes moist. Neck: Trachea midline, no thyromegaly or masses palpated, and no cervical lymphadenopathy. Supple, full range of motion without nuchal rigidity, or vertebral point tenderness. No Meningismus. Chest/axilla: Normal chest wall appearance and motion. Nontender with no deformity. No lesions are appreciated. Cardiovascular: Regular rate and rhythm with a normal S1 and S2. No gallops, murmurs, or rubs. Normal PMI, no JVD. No pulse deficits. Respiratory: Lungs have equal breath sounds bilaterally, clear to auscultation and percussion. No rales, rhonchi or wheezes noted. No increased work of breathing, no retractions or nasal flaring. Abdomen/GI: Soft, non-tender, with normal bowel sounds. No distension or tympany. No guarding or rebound. No evidence of tenderness throughout. Back: No spinal tenderness. No costovertebral tenderness. Full range of motion. Skin: Warm, dry with normal turgor. Normal color with no rashes, no lesions, and no evidence of cellulitis. MS/ Extremity: Pulses equal, no cyanosis. Neurovascular intact. Full, normal range of motion. 21:24 Neuro: Orientation: is normal, Mentation: is normal, Cranial nerves: grossly normal, Cerebellar function: normal finger to nose testing, heel to yanes testing is normal, able to perform alternating rapid hand movements. Vital Signs: 19:17 BP 143 / 91; Pulse 73; Resp 16; Temp 98.1; Pulse Ox 100% on R/A; Weight 97.98 kg (R); ak1 Height 5 ft. 6 in. (167.64 cm) (R); Pain 10/10; 21:37 BP 108 / 60; Pulse 70; Resp 18; Pulse Ox 100% on R/A; ea 22:00 BP 110 / 70; Pulse 68; Resp 18; Temp 98; Pulse Ox 99% on R/A; ea 19:17 Body Mass Index 34.86 (97.98 kg, 167.64 cm) ak1 MDM: 19:41 Patient medically screened. ia 21:24 Differential diagnosis: consider migraine. r/o alternative intracranial process. Data ia reviewed: vital signs, nurses notes. 21:25 Test interpretation: by ED physician or midlevel provider: labs noted wnl. head CT no wa acute process. Response to treatment: the patient's symptoms have markedly improved after treatment. 08/22 20:30 Order name: Basic Metabolic Panel; Complete Time: 21: ia 08/22 20:30 Order name: CBC with Diff; Complete Time: 21:23 ia 08/22 20:30 Order name: CT Head Brain wo Cont; Complete Time: 21: ia 08/22 20:43 Order name: Urine Dipstick--Ancillary (enter results); Complete Time: 21: [facility] 08/22 20:43 Order name: Urine --Ancillary (enter results); Complete Time: 21: [facility] 08/22 20:30 Order name: IV Saline Lock; Complete Time: 20:52 ia 08/22 20:30 Order name: Labs collected and sent; Complete Time: 20:52 ia 08/22 20:30 Order name: NPO; Complete Time: 20:41 ia 08/22 20:30 Order name: O2 Sat Monitoring; Complete Time: 20:41 ia 08/22 20:30 Order name: Urine Dipstick-Ancillary (obtain specimen); Complete Time: 20: ia 08/22 20:30 Order name: Urine Test (obtain specimen); Complete Time: 20:41 wa Administered Medications: 20:41 Not Given (Other Intervention Used): Compazine 5 mg IVP once ea 21:00 Drug: TORadol 30 mg Route: IVP; Site: left antecubital; ea 22:02 Follow up: Response: No adverse reaction; Pain is decreased ea 21:03 Drug: Decadron - Dexamethasone 10 mg Route: IVP; Site: left antecubital; ea 22:02 Follow up: Response: No adverse reaction ea 21: Drug: NS 0.9% 1000 ml Route: IV; Rate: 1 bolus; Site: left antecubital; ea 22:00 Follow up: IV Status: Completed infusion; IV Intake: 1000ml ea 21: Drug: Reglan 5 mg Route: IVP; Site: left antecubital; ea 22:01 Follow up: Response: No adverse reaction ea 21:07 Drug: Benadryl 12.5 mg Route: IVP; Site: left antecubital; ea 22:02 Follow up: Response: No adverse reaction ea Disposition: 08/22/18 21:27 Discharged to Home. Impression: acute headache. - Condition is Stable. - Discharge Instructions: General Headache Without Cause, [id number]. - Prescriptions for Compazine 10 mg Oral Tablet - take 1 tablet by ORAL route every 8 hours As needed; 20 tablet. ketorolac 10 mg Oral tablet - take 1 tablet by ORAL route every 8 hours not to exceed 40 mg in 24hrs; 15 tablet. - Work release form, Medication Reconciliation Form, Thank You Letter, Antibiotic Education, Prescription Opioid Use form. - Follow up: Attila Santo MD; When: 1 - 2 days; Reason: Recheck today's complaints. Follow up: Elba Vega MD; When: 2 - 3 days; Reason: Recheck today's complaints. - Problem is new. - Symptoms have improved. - Notes: quit taking the nasal sprays. take medication as I have prescribed. follow up with the neurologist and ENT doctor as advised. return to ER for any worsening concerns Signatures: Dispatcher [employer] EDMaisha Freire RN RN ak1 Zuleyka Molina RN RN AbelinoKenny MD MD wa Corrections: (The following items were deleted from the chart) 22:12 21:27 08/22/2018 21:27 Discharged to Home. Impression: acute headache. Condition is ea Stable. Forms are Medication Reconciliation Form, Thank You Letter, Antibiotic Education, Prescription Opioid Use. Follow up: Attila Santo; When: 1 - 2 days; Reason: Recheck today's complaints. Follow up: Elba Vega; When: 2 - 3 days; Reason: Recheck today's complaints. Problem is new. Symptoms have improved. wa
[2018-08-22 22:40] VITALS: BP 110/70; TEMP 98; O2SAT 99
== END 2018-08-22 22:12 | disposition home or self-care (01) ==
LOC: ER 18:39
DX: R51 Headache (principal)
CPT/HCPCS: 36415; 70450; 80048; 81003; 81025; 85025; 96361; 96374; 96375; 99284; J2765

== ENCOUNTER 2020-11-03 14:34 | Emergency (ER) | payer BC ==
--- OUTSIDE RECORDS SUMMARY | 2020-11-03 14:37 | XMS REPORT | Continuity of Care Document ---
:[address] [facility] t Address [address] [place] [address] Care Team Providers Name Role Phone Unavailable Unavailable Unavailable Payers Payer Name Policy Type Policy Number Effective Date Expiration Date S ource Problems This patient has no known problems. Allergies, Adverse Reactions, Alerts Allergy Allergy Status Severity Reaction(s) Onset Inactive Treating Comm ents Source Name Type Date Date Clinician codeine DA Active MO 2020-0 [facility] [place] tramadol DA Active SV 2020-0 [facility] [place] codeine DA Active MO 2020-0 [facility] 4[facility] [place] acetamin DA Active MO 2020-0 [facility] ophen 4-27 [facility] [place] tramadol DA Active SV 2019- [facility] [place] Medications This patient has no known medications. Procedures This patient has no known procedures. Results Test Description Test Time Test Comments Results Result [facility] e Comments [facility] 2019-07-14 TRIMESTER 15:28:00 --------RUN DATE: 07/14/19 [facility] PAGE 1 RUN TIME: 1632 Specimen Inquiry RUN USER: INTERFACE --------PATIENT: LATOSHA SPENCER LOC: KISHA U #: [id number] AGE/SX: 24/ ROOM: [facility] RE07/11/19REG DR: Mikey Smieon MD : [birth year] BED: A DIS: STATUS: ADM IN TLOC: -------- SPEC #: [id number] RECD: 07/12/19 STATUS: SOUT REQ #: [id number] BRENDA: 07/12/19- SUBM DR: Mikey Simeon MD ENTERED: 07/13/19 SP TYPE: PLACIII OTHR DR: Raimundo Wade III ORDERED: LEVEL V SURGICA CODES: [id number] - PLACENTA, NOS COPIES TO: Raimundo Wade III [address] [place] [address] [email or web address] [address] [place] [address] PROCEDURES: LEVEL V SURGICA (Incomplete) TISSUES: PLACENTA, NOS - PLACENTA CLINICAL HISTORY 24 year old, 39.1 weeks, [id number], section, pre-eclampsia (kr) FINAL DIAGNOSIS Placenta, 39.1 weeks gestational age, section: - 3rd trimester placenta, 370 gm (10th percentile) - acute chorionitis (stage 1, grade 2) - meconium macrophages within membranes - accelerated villous maturation consistent with maternal vascular hypoperfusion - trivascular umbilical cord free of inflammation CPT code(s): [address] [facility] GROSS DESCRIPTION The specimen was received in a container, labeled with the patient's name, unit number and designated "placenta". The following attributes are observed: Cord insertion: 3 cm from margin CONTINUED ON NEXT PAGE --------RUN DATE: 07/14/19 [facility] PAGE 2 RUN TIME: 1632 Specimen Inquiry RUN USER: INTERFACE --------SPEC #: [id number] PATIENT: LATOSHA SPENCER #[id number] (Continued) GROSS DESCRIPTION (Continued) Cord length: 48 cm Number of vessels: 3 Cord color: Zhou-red Other cord findings: Edematous surface findings: Steel blue, wrinkled, glistening with focal subchorionic fibrin deposition Vasculature: Displays unremarkable blood vasculature Membranes rupture site: 1 cm to margin Membrane color: Zhou Other membrane findings: Thickened The trimmed placental weight: 370 gm Disk measurement: 16.0 x 14.0 x 3.0 cm in greatest dimension Accessory lobes: None Maternal surface: Lobulated and intact Parenchyma: Red, beefy, and spongy with peripheral fibrosis and calcifications Parenchyma lesions: None Cassettes: A1 through A4 eduin 07/13/19 Signed Mary Ellen Story MD 07/14/19 1528 -------- END OF REPORT [facility] PANEL 2019-07-13 16:27:00 Test Item Value Reference Range Interpretation Comme nts CREATININE (test code = CREAT) 1.0 mg/dL 0.5-1.0 N SGOT/AST (test code = AST) 17 units/L 15-37 N SGPT/ALT (test code = ALT) 11 units/L 12-78 L LACTIC DEHYDROGENASE(LDH) (test code = LDH) 168 units/L 81-234 N CBC W/AUTO [id number] 16:15:00 Test Item Value Reference Range Interpretation Comments WHITE BLOOD CELL (test code = WBC) 18.3 K/mm3 6.6-12.1 H RED BLOOD CELL (test code = RBC) 3.34 M/mm3 3.45-5.01 L HEMOGLOBIN (test code = HGB) 10.3 g/dL 10.7-13.9 L HEMATOCRIT (test code = HCT) 30.5 % 32.1-42.1 L MEAN CELL VOLUME (test code = MCV) 91 fL 84.1-94.8 N MEAN CELL HGB (test code = MCH) 30.8 pg 27-35 N MEAN CELL HGB CONCETRATION (test 33.8 gm/dL 32.2-34.1 N code = MCHC) RED CELL DISTRIBUTION WIDTH (test 13.8 % 12.4-16.5 N code = RDW) PLATELET COUNT (test code = PLT) 224 K/mm3 133-385 N MEAN PLATELET VOLUME (test code = 12.5 fl 9.1-12.7 N MPV) NEUTROPHIL % (test code = NT%) 85.0 % 56.5-79.4 H LYMPHOCYTE % (test code = LY%) 9.7 % 14.3-34.3 L MONOCYTE % (test code = MO%) 4.5 % 5.1-10.4 L EOSINOPHIL % (test code = EO%) 0.2 % 0.1-3.0 N BASOPHIL % (test code = BA%) 0.2 % 0.1-1.0 N NEUTROPHIL # (test code = NT#) 15.6 K/mm3 LYMPHOCYTE # (test code = LY#) 1.8 K/mm3 MONOCYTE # (test code = MO#) 0.8 K/mm3 EOSINOPHIL # (test code = EO#) 0.03 K/mm3 BASOPHIL # (test code = BA#) 0.0 K/mm3 RBC MORPHOLOGY REQUIRED (test code NORMAL NORMAL = RBCM) PLATELET MORPHOLOGY REQUIRED (test NORMAL NORMAL code = PLTMR) AG HEPATITIS B [id number] 15:18:00 Test Item Value Reference Range Interpretation Comments AG HEPATITIS B SURFACE (test code NONREACTIVE NONREACTIVE = HBSAG) IS CONSENT FORM SIGNED FOR HIV TESTING? YAB HEPATITIS C [id number] 15:18:00 Test Item Value Reference Range Interpretation Comments AB HEPATITIS C (test code = NONREACTIVE NONREACTIVE HCVAB) SIGNAL TO CUTOFF (test code = 0.11 <0.80 N CUTOFF) IS CONSENT FORM SIGNED FOR HIV TESTING? YAB [id number] 15:18:00 Test Item Value Reference Range Interpretation Comments AB TREPONEMA (test code = TREPAB) NONREACTIVE NONREACTIVE IS CONSENT FORM SIGNED FOR HIV TESTING? YAB HIV 1 15:18:00 Test Item Value Reference Range Interpretation Comments AB HIV 1 2 (test NONREACTIVE NONREACTIVE Done by [facility] code = [id number]) 4th Gen HIV Ag/Ab Combo Screen IS CONSENT FORM SIGNED FOR HIV TESTING? YAG HEPATITIS B [id number] 14:59:00 Test Item Value Reference Range Interpretation Comments AG HEPATITIS B SURFACE (test code NONREACTIVE NONREACTIVE = HBSAG) IS CONSENT FORM SIGNED FOR HIV TESTING? HEMANT HEPATITIS C [id number] 14:59:00 Test Item Value Reference Range Interpretation Comments AB HEPATITIS C (test code = HCVAB) NONREACTIVE SIGNAL TO CUTOFF (test code = CUTOFF) <0.80 IS CONSENT FORM SIGNED FOR HIV TESTING? GARY [id number] 14:59:00 Test Item Value Reference Range Interpretation Comments AB TREPONEMA (test code = TREPAB) NONREACTIVE NONREACTIVE IS CONSENT FORM SIGNED FOR HIV TESTING? YAB HIV 1 14:59:00 Test Item Value Reference Range Interpretation Comments AB HIV 1 2 (test code = ITS24ZM) NONREACTIVE IS CONSENT FORM SIGNED FOR HIV TESTING? YCHEMISTRY 7 [id number] 13:29:00 Test Item Value Reference Range Interpretation Comments SODIUM (test code = NA) 136 mEq/L 135-145 N POTASSIUM (test code = K) 4.8 mEq/L 3.5-5.0 N CHLORIDE (test code = CL) 104 mEq/L 100-115 N CARBON DIOXIDE (test code = CO2) 20 mEq/L 22-31 L ANION GAP (test code = GAP) 16.50 10-20 N GLUCOSE (test code = GLU) 93 mg/dL 65-110 N BLOOD UREA NITROGEN (test code = 19 mg/dL 7-18 H BUN) GLOMERULAR FILTRATION RATE (test 78 ml/min >60 N code = GFR) CREATININE (test code = CREAT) 0.9 mg/dL 0.5-1.0 N CALCIUM (test code = CA) 9.3 mg/dL 8.4-10.2 N LIVER [id number] 13:29:00 Test Item Value Reference Range Interpretation Comments TOTAL PROTEIN (test code = PROT) 6.7 gm/dL 6.3-8.2 N ALBUMIN (test code = ALB) 2.8 gm/dL 3.4-4.8 L BILIRUBIN TOTAL (test code = 0.2 mg/dL 0.2-1.0 N BILT) BILIRUBIN DIRECT (test code = <0.1 mg/dL <0.2 N BILD) SGOT/AST (test code = AST) 14 units/L 15-37 L SGPT/ALT (test code = ALT) 16 units/L 12-78 N ALKALINE PHOSPHATASE TOTAL (test 162 units/L 46-116 H code = ALKP) Coronavirus 2019 nCoV [id number] 13:26:00 Test Item Value Reference Range Interpretation Comments Coronavirus 2019 nCoV Negative Negative RESUL TS CALLED TO Bedside (test code = CHANTE EAD BACK & COVNONPUIBED) CONFIRMED? YES BY FJULIAN 0678 This result deutsch s not rule out co-inf ections with otherpatho gens. * False negative results may occur if a specimen isimproperly co llected, transported or handled. False negativer esults may also occur if amplification i nhibitors arepresent in t he specimen or if inadequate leve ls of virusesare pres ent in the specimen. * As with any molecular t est, if the virus mutat es in thetarget regio n, COVID-19 may no t be detected or may bedetected less predictably.KENYON T PERFORMED UNDER AN EMERGENCY USE AUTHORIZATION F [facility] URINALYSIS [id number] 12:58:00 Test Item Value Reference Range Interpretation Comments UA COLOR (test code = COLU) YELLOW YELLOW UA APPEARANCE (test code = Slightly-Cloudy CLEAR APPU) UA GLUCOSE DIPSTICK (test NEGATIVE NEG code = DGLUU) UA BILIRUBIN DIPSTICK (test NEGATIVE NEG code = BILU) UA KETONE DIPSTICK (test code NEGATIVE NEG = KETU) UA SPECIFIC GRAVITY (test 1.031 1.001-1.035 N code = SGU) UA BLOOD DIPSTICK (test code NEG NEG = OPAL) UA PH DIPSTICK (test code = 5.0 5-9 VIPUL) UA PROTEIN DIPSTICK (test 1+ NEG A code = PROU) UA UROBILINIOGEN DIPSTICK 2.0 mg/dL NEG (test code = URO) UA NITRITE DIPSTICK (test NEG NEG code = DA) UA LEUKOCYTE ESTERASE NEG NEG DIPSTICK (test code = LEUU) UA WBC (test code = WBCU) 3-5 #/hpf NONE SEEN A UA RBC (test code = RBCU) 0-2 #/hpf NONE SEEN UA EPITHELIAL CELLS (test RARE #/HPF RARE-FEW code = EPIU) UA BACTERIA (test code = RARE /HPF RARE-FEW BACU) UA MUCUS (test code = MUCU) 4+ NONE SEEN URINE SAMPLE: CLEAN CATCHCBC W/AUTO [id number] 12:53:00 Test Item Value Reference Range Interpretation Comments WHITE BLOOD CELL (test code = WBC) 12.6 K/mm3 6.6-12.1 H RED BLOOD CELL (test code = RBC) 4.25 M/mm3 3.45-5.01 N HEMOGLOBIN (test code = HGB) 13.1 g/dL 10.7-13.9 N HEMATOCRIT (test code = HCT) 39.3 % 32.1-42.1 N MEAN CELL VOLUME (test code = MCV) 93 fL 84.1-94.8 N MEAN CELL HGB (test code = MCH) 30.8 pg 27-35 N MEAN CELL HGB CONCETRATION (test 33.3 gm/dL 32.2-34.1 N code = MCHC) RED CELL DISTRIBUTION WIDTH (test 13.6 % 12.4-16.5 N code = RDW) PLATELET COUNT (test code = PLT) 278 K/mm3 133-385 N MEAN PLATELET VOLUME (test code = 12.9 fl 9.1-12.7 H MPV) NEUTROPHIL % (test code = NT%) 76.4 % 56.5-79.4 N LYMPHOCYTE % (test code = LY%) 17.5 % 14.3-34.3 N MONOCYTE % (test code = MO%) 5.0 % 5.1-10.4 L EOSINOPHIL % (test code = EO%) 0.2 % 0.1-3.0 N BASOPHIL % (test code = BA%) 0.3 % 0.1-1.0 N NEUTROPHIL # (test code = NT#) 9.6 K/mm3 LYMPHOCYTE # (test code = LY#) 2.2 K/mm3 MONOCYTE # (test code = MO#) 0.6 K/mm3 EOSINOPHIL # (test code = EO#) 0.03 K/mm3 BASOPHIL # (test code = BA#) 0.0 K/mm3 RBC MORPHOLOGY REQUIRED (test code NORMAL NORMAL = RBCM) PLATELET MORPHOLOGY REQUIRED (test NORMAL NORMAL code = PLTMR) BLOOD UREA [id number] 13:11:00 Test Item Value Reference Range Interpretation Comments BLOOD UREA NITROGEN (test code = 12 mg/dL 7-18 N BUN) [id number] 13:11:00 Test Item Value Reference Range Interpretation Comments CREATININE (test code = CREAT) 0.8 mg/dL 0.5-1.0 N [id number] 13:11:00 Test Item Value Reference Range Interpretation Comments SGOT/AST (test code = AST) 13 units/L 15-37 L [id number] 13:11:00 Test Item Value Reference Range Interpretation Comments SGPT/ALT (test code = ALT) 12 units/L 12-78 N URINALYSIS [id number] 13:10:00 Test Item Value Reference Range Interpretation Comments UA COLOR (test code = COLU) JUJU YELLOW A UA APPEARANCE (test code = CLOUDY CLEAR A APPU) UA GLUCOSE DIPSTICK (test code NEGATIVE NEG = DGLUU) UA BILIRUBIN DIPSTICK (test 1+ NEG A code = BILU) UA KETONE DIPSTICK (test code TRACE NEG A = KETU) UA SPECIFIC GRAVITY (test code 1.031 1.001-1.035 N = SGU) UA BLOOD DIPSTICK (test code = NEG NEG OPAL) UA PH DIPSTICK (test code = 5.0 5-9 VIPUL) UA PROTEIN DIPSTICK (test code 1+ NEG A = PROU) UA UROBILINIOGEN DIPSTICK 2.0 mg/dL NEG (test code = URO) UA NITRITE DIPSTICK (test code NEG NEG = DA) UA LEUKOCYTE ESTERASE DIPSTICK TRACE NEG A (test code = LEUU) UA WBC (test code = WBCU) 6-10 #/hpf NONE SEEN A UA RBC (test code = RBCU) 3-5 #/hpf NONE SEEN A UA EPITHELIAL CELLS (test code MODERATE #/HPF RARE-FEW A = EPIU) UA BACTERIA (test code = BACU) RARE /HPF RARE-FEW UA MUCUS (test code = MUCU) 4+ NONE SEEN URINE SAMPLE: CLEAN CATCHComment MACCBC W/AUTO [id number] 13:01:00 Test Item Value Reference Range Interpretation Comments WHITE BLOOD CELL (test code = WBC) 11.6 K/mm3 6.6-12.1 N RED BLOOD CELL (test code = RBC) 3.98 M/mm3 3.45-5.01 N HEMOGLOBIN (test code = HGB) 12.1 g/dL 10.7-13.9 N HEMATOCRIT (test code = HCT) 36.8 % 32.1-42.1 N MEAN CELL VOLUME (test code = MCV) 93 fL 84.1-94.8 N MEAN CELL HGB (test code = MCH) 30.4 pg 27-35 N MEAN CELL HGB CONCETRATION (test 32.9 gm/dL 32.2-34.1 N code = MCHC) RED CELL DISTRIBUTION WIDTH (test 13.2 % 12.4-16.5 N code = RDW) PLATELET COUNT (test code = PLT) 259 K/mm3 133-385 N MEAN PLATELET VOLUME (test code = 12.6 fl 9.1-12.7 N MPV) NEUTROPHIL % (test code = NT%) 78.0 % 56.5-79.4 N LYMPHOCYTE % (test code = LY%) 16.3 % 14.3-34.3 N MONOCYTE % (test code = MO%) 4.5 % 5.1-10.4 L EOSINOPHIL % (test code = EO%) 0.3 % 0.1-3.0 N BASOPHIL % (test code = BA%) 0.3 % 0.1-1.0 N NEUTROPHIL # (test code = NT#) 9.0 K/mm3 LYMPHOCYTE # (test code = LY#) 1.9 K/mm3 MONOCYTE # (test code = MO#) 0.5 K/mm3 EOSINOPHIL # (test code = EO#) 0.04 K/mm3 BASOPHIL # (test code = BA#) 0.0 K/mm3 RBC MORPHOLOGY REQUIRED (test code NORMAL NORMAL = RBCM) PLATELET MORPHOLOGY REQUIRED (test NORMAL NORMAL code = PLTMR) - US FET BIO PH FL W/O [id number] 12:51:00 Patient Name: LATOSHA SPENCER Unit No: [id number] EXAMS: CPT CODE: [id number] US FET BIO PH FL W/O NST [address] [facility] [address], [place] [address] BIOPHYSICAL PROFILE ULTRASOUND REPORT Pat. Name: LATOSHA SPENCER Pat. No: [id number] Study Date: 05/18/2019 11:55am , Age: 14 1995, 23 Pregnancies: 1 LMP: 10/08/2018 GA by LMP: 31w5d GA by 1st: 31w5d GA Selected: 31w3d (From Known E) CELESTE: 07/17/2019 Referring MD: Giovanna Sinclair Enrobing Machine Operator: Ruth Godfrey RDMS CPT4: USBPPWONST Admitting MD: Giovanna Sinclair Hist/Ind: 2nd SCAN: LEAKAGE OF FLUID Cervical Length: 3.0 cm Heart Rate:137 bpm Amniotic Fluid Index: 12.1cm (08.7-24.0) Q1: 3.4cm Q2: 3.0cm Q3: 3.7cm Q4: 2.0cm Biophysical Profile: 10/13 Breathin Tone: 2 Movement: 2 AFV: 2 MATERNAL ANATOMY Ovaries LxHxW (cm) Right 2.2 x 1.7 x 1.9 Vol: 3.7cc Left 2.1 x 1.3 x 1.5 Vol: 2.1cc ------- CLINICAL SUMMARY Type of Gestation: Boucher Intrauterine in vertex presentation. motion and organs seen: heart motion seen Placental location: Anterior Placental maturity : Grade 1 There is no evidence of placenta previa. Amniotic fluid volume is normal. Uterus and adnexa: No significant abnormality is seen. Movement score is 2. Breathing score is 2. Tone score is 2. Amniotic Fluid score is 2. Total Scores 8/8. Thank you for allowing us to participate in the care of this patient. [facility] [place] [facility] NAME: LATOSHA SPENCER Radiology Department PHYS:Sanchez Brenner MD [address] : 1995 AGE: 24 SEX: F [place], [place] [address] LOC: MatteoIDRIS PHONE #: [phone] EXAM DATE: 05/18/2019 STATUS: REG ER FAX #: [phone] RAD NO: Page 1 Signed Report (CONTINUED) Patient Name: LATOSHA SPENCER Unit No: [id number] EXAMS: CPT CODE: [id number] US FET BIO PH FL W/O NST [address] <Continued> Jersey Rea M.D. Electronic Signature 05/18/2019 12:51pm at 1251 Reported and signed by: Jersey Rea MD CC: Mikey Simeon MD; Sanchez Malhotra II Technologist: Ruth Godfrey RDMS Probe: Trnscrbd D/ (1251) [email or web address] Orig Print D/T: S: 05/18/2019 (1251) [facility] NAME: LATOSHA SPENCER Radiology Department PHYS: Sanchez Brenner MD [address] : 1995 AGE: 24 SEX: F [place] [address] LOC: MatteoIDRIS PHONE#: [phone] EXAM DATE: 05/18/2019 STATUS: REG ER FAX #: [phone] RAD NO: Page 2 Signed Report Victorino gonzalez Name: LATOSHA SPENCER Unit No: [id number] EXAMS: CPT CODE: [id number] US FET BIO PH FL W/O NST [address] <Continued> [facility] NAME: LATOSHA SPENCER Radiology Department PHYS: Sanchez Brenner MD [address] : 1995 AGE: 24 SEX: F [place] [address] LOC: MatteoIDRIS PHONE #: [phone] EXAM DATE: 05/18/2019 STATUS: REG ER FAX #: [phone] RAD NO:Page 3 Signed ReportHCG [id number] 15:18:00 Test Item Value Reference Range Interpretation Comments HCG SERUM (test 11440 INTERPRETATI ON:VALUES BETWEEN code = HCG) 15-20 milliInte rnational units/mL NEED T O BERETESTED WITHIN 48 HOURS . All units for these ranges ar e in milliInternatio nalunits/mL0-1 WK AFTER CONCEP TION 0-50 1-2 W KS AFTER CONCEPTION 40-3002-3 WKS A FTER CONCEPTION 100-1 ,0003-4 WKS AFTER CONCEPTIO N 500-6,0001-2 MO NTHS AFTER CONCEPTION 5,000-200,0002- 3 MONTHS AFTER CONCEPTION 10,000-100,0002 ND TRIMESTER 3,000-50,0003RD TRIMESTER 1 ,000-50,000 SPECIMENS WITH AN HCG LEVEL FROM 0-6 milliInternatio nalunits/mL SHOULD BE CONSI DERED NEGATIVE - US PREG UT [id number] 15:02:00 Patient Name: LATOSHA SPENCER Unit No: [id number] EXAMS: CPT CODE: [id number] US PREG UT TRANSVAGINAL [address] [facility] [place] [address] OBSTETRICAL ULTRASOUND REPORT Pat. Name: LATOSHA SPENCER Pat. No: [id number] Study Date: 12/18/2018 2:21pm , Age: 14 1995, 23 Pregnancies: 1 LMP: GA by LMP: 10w1d GA by US: 09w5d GA Selected: 10w1d (LMP) CELESTE: 07/15/2019 Referring MD: Giovanna Sinclair Enrobing Machine Operator: Gloria Carvajal RDMS CPT4: USPRUTTRVG Admitting MD: Giovanna Sinclair Hist/Ind: SPOTTING TODAY, NO PAIN SCAN 1 --------- MEASUREMENTS AGE GROWTH EVALUATION Measurement GA Range Srce %for GA Ratios ----- ---- ------- CRL 2.9 cm 09w5d (55h3z-81q3s) Hadl CRL 31% Sac 3. 5 cm 08w5d (03r6x-82h7o) Hell Sac <05 GA for sonogram 09w5d (60h1q-98c1g) based on (CRL) Avg Cervical Length: 4.0 cm Heart Rate: 161 bpm MATERNAL ANATOMY Ovaries LxHxW (cm) Right 3.0 x 1.8 x 1.8 Vol: 5.1cc Left 2.7 x 1.3 x 2.4 Vol: 4.4cc Ovarian Cysts LxHxW (cm) R1: 1.5 x 1.1 x 0.8 Desc: Corpus Luteum CLINICAL SUMMARY Type of Gestation: Boucher Intrauterine in variable presentation. size is appropriate for gestational age. growth: Consistent with normal growth motion and organs seen: heart motion seen Regular cardiac rhythm observed abnormalities observed: None seen at this exam Limited early scan Placental location: [facility] [place] [facility] NAME: HI SPENCERIA Radiology Department PHYS: Giovanna Esparza [address] : 1995 AGE: 23 SEX: F [place], [place] [address] LOC: ARMINDA PHONE #: [phone] EXAM DATE: 12/18/2018 STATUS: DEP ER FAX #: [phone] RAD NO: Page 1 Signed Report (CONTINUED) Patient Name: LATOSHA SPENCER Unit No: [id number] EXAMS: CPT CODE: [id number] [facility] TRANSVAGINAL [address] <Continued> Forming Amniotic fluid volume is normal. Uterus and adnexa: NO ETIOLOGY SEEN FOR RECENT BLEEDING. FOLLOW UP CLINICALLY INDICATED OR AT 18-20 WEEKS FOR ANATOMIC SURVEY. Thank you for allowing us to participate in thecare of this patient. Soledad Wilkinson M.D. Electronic Signature 12/18/2018 03:02pm at 1502 Reported and signed by: Chica Wilkinson MD CC: Giovanna Sinclair MD Technologist: Gloria Carvajal RDMS Probe: [id number] Trnscrbd D/ (8617) [email or web address] Orig Print D/T: S: 12/21/2018 (1559) [facility] NAME: LATOSHA SPENCER Radiology Department PHYS: [facility].Michael Sinclair,Giovanna [address] : 1995 AGE: 23 SEX: F [place], [place] [address] LOC: MatteoERS PHONE #: [phone] EXAM DATE: 12/18/2018 STATUS: DEP ER FAX #: [phone] RAD NO: Page 2 Signed Report Patient Name: LATOSHA SPENCER Unit No: [id number] EXAMS: CPT CODE: [id number] US PREG UT TRANSVAGINAL [address] <Continued> [facility] NAME: LATOSHA SPENCER Radiology Department PHYS: TRISHAALEXIS.Michael - Alexis Sinclairondra [address] : 1995 AGE: 23 SEX: F [place] [address] LOC: MatteoERS PHONE #: [phone] EXAM DATE: 12/18/2018 STATUS: DEP ER FAX #: [phone] RAD NO: Page 3 Signed Report- US PREG EVAL 1ST [id number] 15:02:00 Patient Name: LATOSHA SPENCER Unit No: [id number] EXAMS: CPT CODE: [id number] US PREG EVAL 1ST TRIMTR [address] [facility] [address], [place] [address] OBSTETRICAL ULTRASOUND REPORT Pat. Name: LATOSHA SPENCER Pat. No: [id number] Study Date: 12/18/2018 2:21pm , Age: 14 1995, 23 Pregnancies: 1 LMP: 10/08/2018 GA by LMP: 10w1d GA by US: 09w5d GA Selected: 10w1d (LMP) CELESTE: 07/15/2019 Referring MD: GIOVANNA SINCLAIR Enrobing Machine Operator: Gloria Carvajal RDMS CPT4: [id number] Admitting MD: GIOVANNA SINCLAIR Hist/Ind: SPOTTING TODAY, NO PAIN SCAN 1 --------- MEASUREMENTS AGE GROWTH EVALUATION Measurement GA Range Srce %for GA Ratios ----- ---- ------- CRL 2.9 cm 09w5d (63x3x-73p6h) Hadl CRL 31% Sac 3. 5 cm 08w5d (43z7w-62r0j) Hell Sac <05 GA for sonogram 09w5d (64j3u-55x6x) based on (CRL) Avg Cervical Length: 4.0 cm Heart Rate: 161 bpm MATERNAL ANATOMY Ovaries LxHxW (cm) Right 3.0 x 1.8 x 1.8 Vol: 5.1cc Left 2.7 x 1.3 x 2.4 Vol: 4.4cc Ovarian Cysts LxHxW (cm) R1: 1.5 x 1.1 x 0.8 Desc: Corpus Luteum CLINICAL SUMMARY Type of Gestation: Boucher Intrauterine in variable presentation. size is appropriate for gestational age. growth: Consistent with normal growth motion and organs seen: heart motion seen Regular cardiac rhythm observed abnormalities observed: None seen at this exam Limited early scan Placental location: [facility] [place] [facility] NAME: LATOSHA SPENCER Radiology Department PHYS: Giovanna Esparza [address] : 1995 AGE: 23 SEX: F [place], [place] [address] LOC: ARMINDA PHONE #: [phone] EXAM DATE: 12/18/2018 STATUS: JESUS FAX #: [phone] RAD NO: Page 1 Signed Report (CONTINUED) Patient Name: LATOSHA SPENCER Unit No: [id number] EXAMS: CPT CODE: [id number] US PREG EVAL 1ST TRIMTR 27381 <Continued> Forming Amniotic fluid volume is normal. Uterus and adnexa: NO ETIOLOGY SEEN FOR RECENT BLEEDING. FOLLOW UP CLINICALLY INDICATED OR AT 18-20 WEEKS FOR ANATOMIC SURVEY. Thank you for allowing us to participate in thecare of this patient. Soledad Wilkinson M.D. Electronic Signature 12/18/2018 03:02pm at 1502 Reported and signed by: Chica Wilkinson MD CC: Giovanna Sinclair MD Technologist: Gloria Carvajal, DONNA Probe: Trnscrbd D/ (1502) [email or web address] Orig Print D/T: S: 12/18/2018 (1502) [facility] NAME: LATOSHA SPENCER Radiology Department PHYS: CHECO.Michael - Giovanna Sinclair [address] : 1995 AGE: 23 SEX: F [place] [address] LOC: [place] PHONE #: [phone] EXAM DATE: 12/18/2018 STATUS: REG ER FAX #: [phone] RAD NO: Page 2 Signed Report Patient Name: LATOSHA SPENCER Unit No: [id number] EXAMS: CPT CODE: [id number] PREG EVAL 1ST TRIMTR 81050 <Continued> The [facility] NAME: LATOSHA SPENCER Radiology Department PHYS: CHECO.Michael - Giovanna Sinclair [address] : 1995 AGE: 23 SEX: F [place] [address] LOC: [place] PHONE #: [phone] EXAM DATE: 12/18/2018 STATUS: REG ER FAX #: [phone] RAD NO: Page 3 Signed ReportCOMPREHENSIVE METABOLIC [id number] 14:55:00 Test Item Value Reference Range Interpretation Comments SODIUM (test code = NA) 139 mEq/L 135-145 N POTASSIUM (test code = K) 3.8 mEq/L 3.5-5.0 N CHLORIDE (test code = CL) 105 mEq/L 100-115 N CARBON DIOXIDE (test code = CO2) 25 mEq/L 22-31 N ANION GAP (test code = GAP) 12.50 10-20 N GLUCOSE (test code = GLU) 84 mg/dL 65-110 N BLOOD UREA NITROGEN (test code = 5 mg/dL 7-18 L BUN) GLOMERULAR FILTRATION RATE (test 156 ml/min >60 N code = GFR) CREATININE (test code = CREAT) 0.5 mg/dL 0.5-1.0 N TOTAL PROTEIN (test code = PROT) 6.5 gm/dL 6.3-8.2 N ALBUMIN (test code = ALB) 3.4 gm/dL 3.4-4.8 N CALCIUM (test code = CA) 8.7 mg/dL 8.4-10.2 N BILIRUBIN TOTAL (test code = BILT) 0.3 mg/dL 0.2-1.0 N SGOT/AST (test code = AST) 15 units/L 15-37 N SGPT/ALT (test code = ALT) 19 units/L 12-78 N ALKALINE PHOSPHATASE TOTAL (test 70 units/L 46-116 N code = ALKP) PROTHROMBIN [id number] 14:42:00 Test Item Value Reference Range Interpretation Comments PROTHROMBIN TIME PATIENT (test code 11.9 secs 10.4-12.4 N = PTP) THROMBOPLASTIN TIME [id number] 14:42:00 Test Item Value Reference Range Interpretation Comments THROMBOPLASTIN TIME PARTIAL (test 32.6 secs 22-38 N code = PTT) CBC W/AUTO [id number] 14:29:00 Test Item Value Reference Range Interpretation Comments WHITE BLOOD CELL (test code = WBC) 7.7 K/mm3 6.6-12.1 N RED BLOOD CELL (test code = RBC) 4.22 M/mm3 3.45-5.01 N HEMOGLOBIN (test code = HGB) 12.5 g/dL 10.7-13.9 N HEMATOCRIT (test code = HCT) 38.6 % 32.1-42.1 N MEAN CELL VOLUME (test code = MCV) 92 fL 84.1-94.8 N MEAN CELL HGB (test code = MCH) 29.6 pg 27-35 N MEAN CELL HGB CONCETRATION (test 32.4 gm/dL 32.2-34.1 N code = MCHC) RED CELL DISTRIBUTION WIDTH (test 13.2 % 12.4-16.5 N code = RDW) PLATELET COUNT (test code = PLT) 266 K/mm3 133-385 N IMMATURE PLATELET FRACTION (test 0.0 % 0.0-10.8 N code = IPF) MEAN PLATELET VOLUME (test code = 11.6 fl 9.1-12.7 N MPV) NEUTROPHIL % (test code = NT%) 63.3 % 56.5-79.4 N LYMPHOCYTE % (test code = LY%) 28.2 % 14.3-34.3 N MONOCYTE % (test code = MO%) 6.8 % 5.1-10.4 N EOSINOPHIL % (test code = EO%) 0.9 % 0.1-3.0 N BASOPHIL % (test code = BA%) 0.5 % 0.1-1.0 N NEUTROPHIL # (test code = NT#) 4.9 K/mm3 LYMPHOCYTE # (test code = LY#) 2.2 K/mm3 MONOCYTE # (test code = MO#) 0.5 K/mm3 EOSINOPHIL # (test code = EO#) 0.07 K/mm3 BASOPHIL # (test code = BA#) 0.0 K/mm3 RBC MORPHOLOGY REQUIRED (test code NORMAL NORMAL = RBCM) PLATELET MORPHOLOGY REQUIRED (test NORMAL NORMAL code = PLTMR) UA RFLX MICR CULT IF [id number] 14:21:00 Test Item Value Reference Range Interpretation Comments UA COLOR (test code = COLU) COLORLESS YELLOW UA APPEARANCE (test code = CLEAR CLEAR APPU) UA GLUCOSE DIPSTICK (test code NEGATIVE NEG = DGLUU) UA BILIRUBIN DIPSTICK (test NEGATIVE NEG code = BILU) UA KETONE DIPSTICK (test code NEGATIVE NEG = KETU) UA SPECIFIC GRAVITY (test code 1.003 1.001-1.035 N = SGU) UA BLOOD DIPSTICK (test code = 1+ NEG A OPAL) UA PH DIPSTICK (test code = 8.0 5-9 VIPUL) UA PROTEIN DIPSTICK (test code NEGATIVE NEG = PROU) UA UROBILINIOGEN DIPSTICK NEGATIVE mg/dL NEG (test code = URO) UA NITRITE DIPSTICK (test code NEG NEG = DA) UA LEUKOCYTE ESTERASE DIPSTICK NEG NEG (test code = LEUU) UA WBC (test code = WBCU) 0-2 #/hpf NONE SEEN UA RBC (test code = RBCU) 0-2 #/hpf NONE SEEN UA EPITHELIAL CELLS (test code RARE #/HPF RARE-FEW = EPIU) UA MUCUS (test code = MUCU) RARE NONE SEEN Indication for culture: Suprapubic Pain
[2020-11-03] MEDS ORDERED: LIDOCAINE 4% PATCH ONE (15:52)
[2020-11-03] MEDS ORDERED: MORPHINE 4 MG/ML SYR ONE ×2 (15:52→17:54)
[2020-11-03] MEDS ORDERED: KETOROLAC 30 MG/ML INJ ONE ×2 (15:52→19:33)
[2020-11-03] MEDS ORDERED: ONDANSETRON 4 MG/2 ML VIAL ONE (15:52)
--- NOTE | 2020-11-03 16:58 | RAD REPORT ---
EXAM DESCRIPTION: RAD - Lumbar Spine 3 Views - 11/03/2020 4:40 pm CLINICAL HISTORY: Back pain FINDINGS: The alignment of the lumbar spine is satisfactory. No fracture or dislocation is seen. No significant bone or joint abnormality noted
--- NOTE | 2020-11-03 18:55 | EDPHYS ---
Physician Documentation [facility] Name: Yamilet Ho Age: 25 yrs Sex: Female : 1995 Arrival Date: 11/03/2020 Time: 14:36 Bed 23 Private MD: ED Physician Letitia Navarro HPI: 11/03 15:26 This 25 yrs old Female presents to ER via EMS with complaints of Back Pain. pm1 15:26 The patient presents with pain that is acute. The symptoms are located in the low back. pm1 Onset: The symptoms/episode began/occurred today. The pain does not radiate. Associated signs and symptoms: Pertinent negatives: fever, numbness, tingling. The problem was sustained when bending over. Modifying factors: The patient symptoms are alleviated by remaining still, the patient symptoms are aggravated by movement. Severity of symptoms: in the emergency department the symptoms are actually worse. The patient has experienced a previous episode, Reports history of herniated disks in lower back. The patient has not recently seen a physician. Patient reports bending over to hop picker toys and feeling a popping sensation in her lower back. 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 - Social history:: Smoking status: Patient denies any tobacco usage or history of. Patient uses alcohol, but reports only rare drinking. ROS: 15:26 Constitutional: Negative for fever, chills, and weight loss, Cardiovascular: Negative pm1 for chest pain, palpitations, and edema, Respiratory: Negative for shortness of breath, cough, wheezing, and pleuritic chest pain. 15:26 MS/Extremity: Negative for injury and deformity, Skin: Negative for injury, rash, and discoloration, Neuro: Negative for headache, weakness, numbness, tingling, and seizure. 15:26 Back: Positive for of the lumbar area, Pain. 15:26 All other systems are negative. Exam: 15:26 Constitutional: This is a well developed, well nourished patient who is awake, alert, pm1 and in no acute distress. Head/Face: Normocephalic, atraumatic. 15:26 Skin: Warm, dry with normal turgor. Normal color with no rashes, no lesions, and no evidence of cellulitis. MS/ Extremity: Pulses equal, no cyanosis. Neurovascular intact. Full, normal range of motion. 15:26 Cardiovascular: Exam negative for acute changes, Rate: normal, Rhythm: regular, Pulses: no pulse deficits are appreciated. 15:26 Respiratory: Exam negative for acute changes, respiratory distress, shortness of breath, Breath sounds: are clear throughout. 15:26 Abdomen/GI: Exam negative for acute changes, Inspection: abdomen appears normal, Palpation: abdomen is soft and non-tender, in all quadrants. 15:26 Back: pain, that is moderate, of the lumbar area, normal spinal alignment noted. 15:26 Neuro: Exam negative for acute changes, Orientation: is normal, Mentation: is normal, Motor: is normal, moves all fours, Sensation: is normal, no obvious gross deficits. Vital Signs: 14:42 BP 155 / 95; Pulse 97; Resp 18; Temp 98; Pulse Ox 100% ; Pain 10/10; ch5 17:28 BP 132 / 97; Pulse 95; Resp 18; Pulse Ox 100% ; Pain 10/10; ch5 18:42 BP 127 / 74; Pulse 78; Resp 18; Pulse Ox 100% ; Pain 8/10; ch5 MDM: 15:23 Patient medically screened. pm1 15:23 Data reviewed: vital signs. Data interpreted: Pulse oximetry: on room air is 100 %. pm1 Interpretation: normal. 18:54 Counseling: I had a detailed discussion with the patient and/or guardian regarding: the pm1 historical points, exam findings, and any diagnostic results supporting the discharge/admit diagnosis, radiology results, the need for outpatient follow up, to return to the emergency department if symptoms worsen or persist or if there are any questions or concerns that arise at home. 11/03 15:25 Order name: Lumbar Spine (3 Views) XRAY; Complete Time: 16:59 pm1 Administered Medications: 15:41 Drug: morphine 4 mg Route: IVP; Site: right antecubital; ch5 16:39 Follow up: Response: Pain is decreased ch5 15:41 Drug: Zofran (Ondansetron) 4 mg Route: IVP; Site: right antecubital; ch5 16:39 Follow up: Response: Pain is decreased ch5 16:39 Follow up: Response: No change in condition ch5 15:42 Drug: Ketorolac 30 mg Route: IVP; Site: right antecubital; ch5 16:39 Follow up: Response: Pain is decreased ch5 17:33 Drug: morphine 4 mg Route: IVP; Site: right antecubital; ch5 17:57 Follow up: Response: Pain is decreased ch5 18:41 Follow up: Response: Pain is decreased ch5 Disposition Summary: 11/03/20 18:55 Discharge Ordered Location: Home pm1 Problem: new pm1 Symptoms: have improved pm1 Condition: Stable pm1 Diagnosis - Low back pain pm1 Followup: pm1 - With: Emergency Department - When: As needed - Reason: Worsening of condition Followup: pm1 - With: Private Physician - When: 2 - 3 days - Reason: Recheck today's complaints, Continuance of care, Re-evaluation by your physician Discharge Instructions: - Discharge Summary Sheet pm1 - Acute Back Pain, Adult pm1 - Back Injury Prevention, [id number] pm1 Forms: - Medication Reconciliation Form pm1 - Thank You Letter pm1 - Antibiotic Education pm1 - Prescription Opioid Use pm1 - Work release form eb Prescriptions: - Lidoderm 5 % Topical adhesive patch,medicated - apply 1 patch by TRANSDERMAL route once daily As needed 12 hours on and 12 pm1 hours off in a 24 hour period; 10 patch; Refills: 0, Product Selection Permitted - acetaminophen-codeine 300-15 mg Oral tablet - take 2 tablet by ORAL route every 6 hours As needed as needed; 20 tablet; pm1 Refills: 0, Product Selection Permitted - Cyclobenzaprine 10 mg Oral Tablet - take 1 tablet by ORAL route every 8 hours As needed; 30 tablet; Refills: 0, pm1 Product Selection Permitted Addendum: 11/04/2020 20:36 Co-signature as Attending Physician, Letitia Navarro MD. m a2 Signatures: Dispatcher [employer] Calin Ayala NP REFRIGERATION BRAZER/SOLDERER pm1 Letitia Navarro MD MD vt2 Karl Patel RN RN ch5 Corrections: (The following items were deleted from the chart) 11/03 14:40 14:40 PMHx: scoliosis; ch5 ch5 14:40 14:40 PMHx: Migraines; ch5 ch5
--- NOTE | 2020-11-03 18:55 | ER ---
Nurse's Notes [facility] Name: Yamilet Ho Age: 25 yrs Sex: Female : 1995 Arrival Date: 11/03/2020 Time: 14:36 Bed 23 Private MD: Diagnosis: Low back pain Presentation: 11/03 14:43 Chief complaint: Patient states: Pt bent over felt pop with sudden onset of pain. Loss ch5 of Bladder control. Coronavirus screen: Vaccine status: Patient reports being unvaccinated. Ebola Screen: Patient negative for fever greater than or equal to 101.5 degrees Fahrenheit, and additional compatible Ebola Virus Disease symptoms Patient denies exposure to infectious person. Patient denies travel to an Ebola-affected area in the 21 days before illness onset. Initial Sepsis Screen: Does the patient meet any 2 criteria? No. Patient's initial sepsis screen is negative. Does the patient have a suspected source of infection? No. Patient's initial sepsis screen is negative. Risk Assessment: Do you want to hurt yourself or someone else? Patient reports no desire to harm self or others. Onset of symptoms was November 03, 2020 at 13:15. 14:43 Method Of Arrival: EMS: [facility] 5 14:43 Acuity: JUAN 2 ch5 Triage Assessment: 15:10 General: Behavior is cooperative, Reports. Musculoskeletal: Reports pain in back Pain ch5 is 10 out of 10 on a pain scale. 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 - Social history:: Smoking status: Patient denies any tobacco usage or history of. Patient uses alcohol, but reports only rare drinking. Screenin:40 Abuse screen: Denies threats or abuse. Denies injuries from another. Nutritional ch5 screening: No deficits noted. Tuberculosis screening: No symptoms or risk factors identified. Fall Risk None identified. Assessment: 14:37 General: Appears uncomfortable. Pain: Complains of pain in back Pain at worst was 10 ch5 out of 10 on a pain scale. Quality of pain is described as sharp, stabbing, Pain began suddenly. Neuro: Reports loss of bladder control. 16:38 Reassessment: PT still in Xray. ch5 Vital Signs: 14:42 BP 155 / 95; Pulse 97; Resp 18; Temp 98; Pulse Ox 100% ; Pain 10/10; ch5 17:28 BP 132 / 97; Pulse 95; Resp 18; Pulse Ox 100% ; Pain 10/10; ch5 18:42 BP 127 / 74; Pulse 78; Resp 18; Pulse Ox 100% ; Pain 8/10; ch5 ED Course: 14:36 Patient arrived in ED. ds1 14:37 Karl Patel, RAYNA is Primary Nurse. ch5 14:40 Bed in low position. Call light in reach. Side rails up X2. ch5 14:40 Inserted saline lock: 20 gauge in right antecubital area, using aseptic technique. ch5 Placed by EMS. 14:45 Triage completed. ch5 15:12 Calin Hwang NP is PHCP. pm1 15:12 Letitia Navarro MD is Attending Physician. pm1 16:33 Lumbar Spine (3 Views) XRAY In Process Unspecified. EDMS 19:23 Arm band placed on right wrist. ld1 19:23 No provider procedures requiring assistance completed. IV discontinued, intact, ld1 bleeding controlled, No redness/swelling at site. Administered Medications: 15:41 Drug: morphine 4 mg Route: IVP; Site: right antecubital; ch5 16:39 Follow up: Response: Pain is decreased ch5 15:41 Drug: Zofran (Ondansetron) 4 mg Route: IVP; Site: right antecubital; ch5 16:39 Follow up: Response: Pain is decreased ch5 16:39 Follow up: Response: No change in condition ch5 15:42 Drug: Ketorolac 30 mg Route: IVP; Site: right antecubital; ch5 16:39 Follow up: Response: Pain is decreased ch5 17:33 Drug: morphine 4 mg Route: IVP; Site: right antecubital; ch5 17:57 Follow up: Response: Pain is decreased ch5 18:41 Follow up: Response: Pain is decreased ch5 Outcome: 18:55 Discharge ordered by . pm1 19:23 Discharged to home via wheelchair, with family. ld1 19:23 Condition: stable 19:23 Discharge instructions given to patient, Instructed on discharge instructions, follow up and referral plans. medication usage, Demonstrated understanding of instructions, follow-up care, medications, Prescriptions given X 3. 19:24 Patient left the ED. ld1 Signatures: Dispatcher [employer] EDMS Sue Marinelli ds1 Calin Hwang NP MELT HELPER pm1 Khadijah Cruz RN RN ld1 Karl Patel RN RN ch5 Corrections: (The following items were deleted from the chart) 14:40 14:40 PMHx: scoliosis; ch5 ch5 14:40 14:40 PMHx: Migraines; ch5 ch5
[2020-11-03 19:33] VITALS: TEMP 98; O2SAT 100
[2020-11-03 19:42] VITALS: BP 127/74
== END 2020-11-03 19:24 | disposition home or self-care (01) ==
LOC: ER 14:34
DX: M54.5 Low back pain (principal)
CPT/HCPCS: 72100; 96375; 96374; 99284; J2405